=== PATIENT | female | born 1990 | race Caucasian/White ===

== ENCOUNTER → 2019-12-13 | Outpatient (CLI) | payer OTHER ==
--- NOTE | 2019-12-13 17:33 | RAD ---
EXAM: Ultrasound PREG MORE THAN OR EQ TO 14 WKS 12/13/2019 2:00 PM INDICATION: Size and dates. COMPARISON: None FINDINGS: There is a single living intrauterine gestation in breech position. heart rate is 162 bpm. Placenta is anterior. No previa. The following anatomy as visualized: brain, face, stomach, kidneys, bladder, three-vessel cord, cord insertion, cervical, thoracic, and lumbar spine, and extremities. Probable four-chamber heart, although suboptimally visualized. Nose and lips are not visualized and gender not visualized due to position and early gestation. biometry: Biparietal diameter: 4.1 cm, 18 weeks 3 days Head circumference: 15.4 cm, 18 weeks 3 days Abdominal circumference: 13.2 cm, 18 weeks 5 days Femur length: 2.9 cm, 19 weeks 0 days HC/AC ratio: 1.2 OTILIO: 12.7 Estimated gestational age by ultrasound: 18 weeks 5 days. Estimated due date 05/10/2020. Estimated weight: 257 g. IMPRESSION: 1. Single living intrauterine with gestational age 18 weeks 5 days by ultrasound. Estimated weight 257 g. 2. Suboptimal visualization of the heart, nose and lips, and tender due to position and early gestational age. Recommend attention on follow-up ultrasound. Electronically signed by: Mila Rock MD (12/13/2019 5:30 PM) [id number]
== END ==
LOC: US 13:46
PROVIDERS: ATTEND Obstetrics & Gynecology
DX: Z32.01 Encounter for pregnancy test, result positive (principal); O26.842 Uterine size-date discrepancy, second trimester; Z3A.18 18 weeks gestation of pregnancy
CPT/HCPCS: 76805